=== PATIENT | female | born 1945 | race Caucasian/White ===

== ENCOUNTER 2018-07-04 01:31 | Inpatient (IN) | payer MEDICARE, OTHER ==
[~2018-07-04] VITALS: Ht 153 cm; Wt 96.7 kg
[2018-07-04 02:07] LABS: Basophils # (auto) 0 uL; Basophils % (auto) 0.4 % (0.0-2.0); Eosinophils # (auto) 0.2 uL; Hematocrit 35.8 % (36.0-46.0); Hemoglobin 11.8 g/dL (12.2-16.2); Lymphocytes # (auto) 3.1 uL; Lymphocytes % (auto) 39.4 % (10.0-50.0); Mean Corpuscular Hemoglobin 30.9 pg (28.0-32.0); Mean Corpuscular Hgb Conc. 32.9 g/dL (32.0-36.0); Mean Corpuscular Volume 94.2 fL (80.0-100.0); Monocytes # (auto) 0.7 uL; Monocytes % (auto) 8.8 % (0.0-12.0); Neutrophils # (auto) 3.8 uL; Neutrophils % (auto) 49.4 % (37.0-80.0); Nucleated Red Blood Cells % 0.1 %; Platelet Count (auto) 269 10^3/uL (140-450); Red Cell Distribution Width 13.9 % (11.8-14.3); White Blood Cell 7.8 10^3/uL (4.4-10.8)
[2018-07-04 02:25] LABS: Albumin 3.5 g/dL (3.4-5.0); Anion Gap 9 (5-15); Blood Urea Nitrogen 30 mg/dL (7-18); Calcium 8.4 mg/dL (8.5-10.1); Carbon Dioxide 26 mmol/L (21-32); Chloride 104 mmol/L (98-107); GFR African American 57 mL/min; GFR Non-African American 47 mL/min; Glucose 125 mg/dL (74-106); INR 1.06 (0.9-1.15); Magnesium 2.1 mg/dL (1.6-2.6); Partial Thromboplastin Time 29.1 sec (23.78-33.04); Potassium 4.5 mmol/L (3.5-5.1); Prothrombin Time 11.3 sec (9.27-12.13); Sodium 139 mmol/L (136-145)
[2018-07-04 02:30] LABS: Alanine Aminotransferase 31 U/L (13-56); Alkaline Phosphatase 55 U/L (45-117); Aspartate Aminotransferase 56 U/L (15-37); Bilirubin, Total 0.6 mg/dL (0.2-1.0); Total Protein 6.7 g/dL (6.4-8.2)
[2018-07-04 05:56] LABS: Urine Bacteria MOD /hpf (None Seen); Urine Blood Negative /uL (Negative); Urine Mucus FEW (None Seen); Urine Specific Gravity 1.016 (1.001-1.035); Urine WBC 9 /hpf (0 - 5)
[2018-07-04] MEDS ORDERED: METO25TA5 PO (08:25)
[2018-07-04] MEDS ORDERED: ESOM20CA PO (08:25)
[2018-07-04] MEDS ORDERED: LOSA100T33 PO (08:25)
[2018-07-04] MEDS ORDERED: POTA10TA51 PO (08:25)
[2018-07-04] MEDS ORDERED: ATOR20TA50 PO (08:25)
[2018-07-04] MEDS ORDERED: PROMETHAZINE HCL 25 MG/ML 1ML IV PRN (09:15)
[2018-07-04] MEDS ORDERED: DOCUSATE SOD 100 MG CAP PO PRN (09:15)
[2018-07-04] MEDS ORDERED: ACETAMINOPHEN 325 MG TAB PO PRN (09:15)
[2018-07-04] MEDS ORDERED: NITROGLYCERIN 0.4 MG SL TAB SL PRN (09:15)
[2018-07-04] MEDS ORDERED: cefTRIAXone 1GM/10ml IVPUSH 10 ML IV ONE (09:15)
[2018-07-04] MEDS ORDERED: TEMAZEPAM 15 MG CAP PO PRN (09:15)
[2018-07-04] MEDS ORDERED: MORPHINE SULF INJ 2 MG/ML SYRINGE 1ML IV PRN ×2 (09:15)
[2018-07-04] MEDS: HCTZ 25 MG TAB PO SCH (10:16)
[2018-07-04] MEDS: APIXABAN 5 MG TAB PO SCH ×2 (10:16→22:20)
[2018-07-04] MEDS: POTASSIUM CHL 10 Meq TABLET PO SCH (10:16)
[2018-07-04] MEDS: FAMOTIDINE 20 MG TAB PO SCH ×2 (10:24→22:20)
[2018-07-04] MEDS: MULTIPLE VITAMIN TAB PO SCH (10:24)
[2018-07-04] MEDS: SODIUM CHLOR 0.9% PF (SALINE LOCK) 10ML VIAL/SYR IV SCH ×2 (14:04→22:20)
[2018-07-04] MEDS: ACETYLCYSTEINE ORAL for CIN 20%(200MG/ML) 4ML PO SCH (15:28)
[2018-07-04 18:22] VITALS: BP 124/50
[2018-07-04] MEDS ORDERED: APIX5TAB OR (18:58)
[2018-07-04 22:00] VITALS: BP 119/48
[2018-07-04] MEDS: ATORVASTATIN 20 MG TAB PO SCH (22:20)
[2018-07-05] VITALS (7 sets, daily range): BP systolic 119–134; BP diastolic 44–72
[2018-07-05] MEDS: SODIUM CHLOR 0.9% PF (SALINE LOCK) 10ML VIAL/SYR IV SCH ×3 (06:57→22:22)
[2018-07-05] MEDS: ACETYLCYSTEINE ORAL for CIN 20%(200MG/ML) 4ML PO SCH (06:57)
[2018-07-05 07:54] LABS: Albumin 3.7 g/dL (3.4-5.0); Calcium 9.2 mg/dL (8.5-10.1); Total Protein 7.1 g/dL (6.4-8.2)
[2018-07-05 07:57] LABS: Basophils # (auto) 0 uL; Basophils % (auto) 0.3 % (0.0-2.0); Eosinophils # (auto) 0.1 uL; Eosinophils % (auto) 2.2 % (0.0-7.0); Hemoglobin 12.1 g/dL (12.2-16.2); Lymphocytes # (auto) 1.2 uL; Lymphocytes % (auto) 24.5 % (10.0-50.0); Mean Corpuscular Hemoglobin 31.3 pg (28.0-32.0); Mean Corpuscular Hgb Conc. 33.6 g/dL (32.0-36.0); Mean Corpuscular Volume 93.1 fL (80.0-100.0); Monocytes # (auto) 0.6 uL; Neutrophils # (auto) 3.1 uL; Nucleated Red Blood Cells % 0.1 %; Platelet Count (auto) 248 10^3/uL (140-450); Red Blood Cells 3.87 10^6/uL (4.0-5.20)
[2018-07-05] MEDS ORDERED: cefTRIAXone 1GM/10ml IVPUSH 10 ML IV SCH (09:00)
[2018-07-05] MEDS: MULTIPLE VITAMIN TAB PO SCH (09:58)
[2018-07-05] MEDS: FAMOTIDINE 20 MG TAB PO SCH ×2 (09:58→22:23)
[2018-07-05] MEDS: HCTZ 25 MG TAB PO SCH (09:59)
[2018-07-05] MEDS: HYDROcodone-ACET 5/325MG TAB PO PRN (09:59)
[2018-07-05] MEDS: APIXABAN 5 MG TAB PO SCH ×2 (10:00→21:50)
[2018-07-05] MEDS: POTASSIUM CHL 10 Meq TABLET PO SCH (10:00)
[2018-07-05] MEDS ORDERED: D5W/SOD CHL 0.45% 1,000 ML IV ONE (10:45)
[2018-07-05] MEDS ORDERED: DEXTROSE (50%) 50ML SYRG IV PRN (10:45)
[2018-07-05] MEDS: InsuLIN REG 1unit/0.01ml Soln (100units/ml) SC SCH ×3 (11:30→22:00)
[2018-07-05] MEDS: ACCU-CHEK COMFORT CURVE STRIP VI SCH ×3 (11:32→22:24)
[2018-07-05] MEDS: ATORVASTATIN 20 MG TAB PO SCH (22:22)
[2018-07-06 05:09] VITALS: BP 137/64
[2018-07-06] MEDS: SODIUM CHLOR 0.9% PF (SALINE LOCK) 10ML VIAL/SYR IV SCH (06:17)
[2018-07-06 06:44] LABS: Basophils # (auto) 0 uL; Basophils % (auto) 0.5 % (0.0-2.0); Eosinophils # (auto) 0.1 uL; Hematocrit 34.3 % (36.0-46.0); Hemoglobin 11.6 g/dL (12.2-16.2); Lymphocytes # (auto) 1.5 uL; Lymphocytes % (auto) 26.8 % (10.0-50.0); Mean Corpuscular Hemoglobin 31.5 pg (28.0-32.0); Mean Corpuscular Hgb Conc. 33.9 g/dL (32.0-36.0); Mean Corpuscular Volume 92.8 fL (80.0-100.0); Monocytes # (auto) 0.6 uL; Monocytes % (auto) 11.3 % (0.0-12.0); Neutrophils # (auto) 3.4 uL; Neutrophils % (auto) 59.4 % (37.0-80.0); Platelet Count (auto) 250 10^3/uL (140-450); Red Cell Distribution Width 13.6 % (11.8-14.3); White Blood Cell 5.7 10^3/uL (4.4-10.8)
[2018-07-06] MEDS: ACCU-CHEK COMFORT CURVE STRIP VI SCH ×2 (07:00→11:30)
[2018-07-06] MEDS: InsuLIN REG 1unit/0.01ml Soln (100units/ml) SC SCH ×2 (07:00→11:30)
[2018-07-06 07:02] LABS: Potassium 4.5 mmol/L (3.5-5.1)
[2018-07-06] MEDS ORDERED: LIDOCAINE 2%HCL (LOCAL ANESTH.) INJ 10ml MDV ONE (07:38)
[2018-07-06] MEDS ORDERED: IODIXANOL 320MG/ML 100ML BTL IV ONE (07:38)
[2018-07-06] MEDS ORDERED: IOHEXOL 350 MG/ML 100ML IJ ONE (07:42)
[2018-07-06] MEDS ORDERED: ANGIOMAX 250 MG VIAL IV ONE (07:48)
[2018-07-06] MEDS ORDERED: fentaNYL CITRATE 100 MCG/2 ML VL ONE (07:48)
[2018-07-06] MEDS ORDERED: MIDAZOLAM HCL 1MG/1ML-2 ML VIAL ONE (07:48)
[2018-07-06] MEDS ORDERED: SODIUM CHL 0.9% 0 ML ONE (07:48)
[2018-07-06] MEDS ORDERED: SODIUM CHLORIDE 0.9% 1,000 ML IV SCH (08:31)
[2018-07-06] MEDS: MULTIPLE VITAMIN TAB PO SCH (09:58)
[2018-07-06] MEDS: FAMOTIDINE 20 MG TAB PO SCH (09:58)
[2018-07-06] MEDS: POTASSIUM CHL 10 Meq TABLET PO SCH (09:58)
[2018-07-06] MEDS: APIXABAN 5 MG TAB PO SCH (09:58)
[2018-07-06] MEDS: HCTZ 25 MG TAB PO SCH (09:58)
[2018-07-06 09:59] VITALS: BP 155/71
[2018-07-06 10:15] VITALS: BP 155/71
[2018-07-06] MEDS: HYDROcodone-ACET 5/325MG TAB PO PRN (12:03)
[2018-07-06 13:00] VITALS: BP 151/62
== END 2018-07-06 13:25 | disposition home or self-care (01) | DRG 286 ==
LOC: ER 01:39 → TELE 01:40 → TELE-CENTR 18:28
PROVIDERS: ADMIT Nurse Practitioner Family; ATTEND Internal Medicine
PROC: 4A023N7 Measurement of Cardiac Sampling and Pressure, Left Heart, Percutaneous Approach (ICD-10-PCS; principal; 2018-07-06)
PROC: B2111ZZ Fluoroscopy of Multiple Coronary Arteries using Low Osmolar Contrast (ICD-10-PCS; 2018-07-06)
PROC: B2151ZZ Fluoroscopy of Left Heart using Low Osmolar Contrast (ICD-10-PCS; 2018-07-06)
DX: I49.5 Sick sinus syndrome (principal); N17.0 Acute kidney failure with tubular necrosis; J98.11 Atelectasis; I48.92 Unspecified atrial flutter; I20.0 Unstable angina; Z68.41 Body mass index [BMI] 40.0-44.9, adult; E83.51 Hypocalcemia; N18.3 Chronic kidney disease, stage 3 (moderate); D63.8 Anemia in other chronic diseases classified elsewhere; E03.9 Hypothyroidism, unspecified; E11.21 Type 2 diabetes mellitus with diabetic nephropathy; E11.22 Type 2 diabetes mellitus with diabetic chronic kidney disease; E66.01 Morbid (severe) obesity due to excess calories; E78.5 Hyperlipidemia, unspecified; I48.0 Paroxysmal atrial fibrillation; K21.9 Gastro-esophageal reflux disease without esophagitis; I13.10 Hypertensive heart and chronic kidney disease without heart failure, with stage 1 through stage 4 chronic kidney disease, or unspecified chronic kidney disease; Z79.899 Other long term (current) drug therapy; Z90.710 Acquired absence of both cervix and uterus; Z98.84 Bariatric surgery status; Z88.0 Allergy status to penicillin; Z88.8 Allergy status to other drugs, medicaments and biological substances; Z82.49 Family history of ischemic heart disease and other diseases of the circulatory system
CPT/HCPCS: 36415; 71045; 80048; 80053; 80061; 81001; 82962; 83036; 83735; 83880; 84443; 84484; 85025; 85610; 85730; 86850; 86900; 86901; 87086; 87088; 87186; 93005; 93306; 93458; 96374; 99152; 99291; A6257; J0696; J2001; J2250; Q9967